=== PATIENT | female | born 1960 | race Caucasian/White ===

== ENCOUNTER 2020-03-12 15:10 | Emergency (ER) | payer BC, OTHER ==
[~2020-03-12] VITALS: Ht 167.6 cm; Wt 59.9 kg
--- NOTE | 2020-03-12 15:38 | RAD ---
EXAMINATION: XR CHEST 1V CLINICAL HISTORY: Abdominal pain EXAM DATE/TIME: 03/12/2020 3:20 PM COMPARISON: 08/07/2009 FINDINGS: Lines, Tubes, and Devices: None. Cardiomediastinal Silhouette: Normal heart size. Aortic atherosclerotic calcification. Lungs and Pleura: No evidence of focal airspace consolidation or pleural effusion. Pulmonary vasculat ure unremarkable. Bones and Soft Tissues: Degenerative changes of the thoracic spine. Cholecystectomy clips. IMPRESSION: No evidence of acute cardiopulmonary abnormality or significant interval change. Electronically signed by: Tramaine Narayanan DO (03/12/2020 3:36 PM) [id number]
--- NOTE | 2020-03-12 15:43 | PHYS DOC ---
General Adult EDM: Chief Complaint: ABDOMINAL PAIN HPI: HPI: Patient is a 60-year-old female who presents with epigastric and right upper quadrant abdominal pain. Patient states that she has a history of cirrhosis and hep C. Patient was diagnosed 4 years ago and treated for hep C. Patient sees Dr. Daley at for cirrhosis. Patient reports that pain started after Sathish, and has been off and on since. Patient does report some nausea and vomiting but denies today. States "I havent been able to eat much because of the discomfort". Describes pain as stabbing, burning pain. Patient has been taking tramadol at home, which has been helping with the pain. Patient has an appointment tomorrow with her primary care physician but wasnt able to wait due to being too uncomfortable. Denies fever. Patient has history of COPD, arthritis, depression. Patient denies history of alcohol or drug use. Patient states "I have not drank or smoked in 4 years". Review of Systems: Review of Systems: Constitutional: Denies fever or chills Eyes: Denies change in visual acuity HENT: Denies nasal congestion or sore throat Respiratory: Denies cough or shortness of breath Cardiovascular: Denies chest pain or edema GI: Reports epigastric abdominal pain, denies nausea, vomiting, bloody stools or diarrhea : Denies dysuria Musculoskeletal: Denies back pain or joint pain Integument: Denies rash Neurologic: Denies headache, focal weakness or sensory changes Endocrine: Denies polyuria or polydipsia Lymphatic: Denies swollen glands Psychiatric: Denies depression or anxiety Allergies: Allergies: Allergies Coded Allergies Type Severity Reaction Last Updated Verified No Known Drug Allergies 03/12/20 No Physical Exam: PE: Constitutional: Well developed, well nourished, no acute distress, non-toxic appearance. [] HENT: Normocephalic, atraumatic, bilateral external ears normal, oropharynx moist, no oral exudates, nose normal. [] Eyes: PERRLA, EOMI, conjunctiva normal, no discharge. [] Neck: Normal range of motion, no tenderness, supple, no stridor. [] Cardiovascular:Heart rate regular rhythm, no murmur [] Lungs & Thorax: Bilateral breath sounds clear to auscultation [] Abdomen: Bowel sounds normal, soft, epigastric tenderness, no masses, no pulsatile masses. [] Skin: Warm, dry, no erythema, no rash. [] Back: No tenderness, no CVA tenderness. [] Extremities: No tenderness, no cyanosis, no clubbing, ROM intact, no edema. [] Neurologic: Alert and oriented X 3, normal motor function, normal sensory function, no focal deficits noted. [] Psychologic: Affect normal, judgement normal, mood normal. [] EKG: EKG: Sinus Rhythm, HR 81 BPM[] Radiology/Procedures: Radiology/Procedures: []EXAMINATION: XR CHEST 1V CLINICAL HISTORY: Abdominal pain EXAM DATE/TIME: 03/12/2020 3:20 PM COMPARISON: 08/07/2009 FINDINGS: Lines, Tubes, and Devices: None. Cardiomediastinal Silhouette: Normal heart size. Aortic atherosclerotic calcification. Lungs and Pleura: No evidence of focal airspace consolidation or pleural effusio n. Pulmonary vasculature unremarkable. Bones and Soft Tissues: Degenerative changes of the thoracic spine. Cholecystectomy clips. IMPRESSION: No evidence of acute cardiopulmonary abnormality or significant interval change. Electronically signed by: Tramaine Narayanan DO (03/12/2020 3:36 PM) [id number] xam: CT of abdomen and pelvis without contrast INDICATION: Abdominal pain TECHNIQUE: Sequential axial images through the abdomen and pelvis obtained without IV contrast. Sagittal and coronal reformatted images were reconstructed from the axial data and reviewed. Comparisons: None FINDINGS: Heart size is normal. No pericardial visualized lung bases are clear. No pleural effusion. Evaluation of solid organs is limited secondary to noncontrast technique. Liver, spleen, pancreas, and adrenals are unremarkable. Gallbladder surgically absent. No perinephric inflammation or hydronephrosis. No renal or ureteral calculi are identified. Bladder is decompressed not well evaluated. Uterus is not enlarged. No abnormal adnexal mass. Large and small bowel are unremarkable. Appendix is not identified. No free intra-abdominal air or fluid. No obstruction. Abdominal aorta has a normal course and caliber. No enlarged intra-abdominal lymph nodes are identified. No suspicious osseous lesions or acute fractures. IMPRESSION: No acute process identified within the abdomen or pelvis. Exposure: One or more of the following in the visualized dose reduction techniques were utilized for this examination: 1. Automated exposure control 2. Adjustment of the MA and/or KV according to patient size 3. Use of iterative of reconstructive technique Electronically signed by: Jorge Reeves MD (03/12/2020 4:04 PM) [facility] Heart Score: Risk Factors: Risk Factors: DM, Current or recent (<one month) smoker, HTN, HLP, family history of CAD, obesity. Risk Scores: Score 0 - 3: 2.5% MACE over next 6 weeks - Discharge Home Score 4 - 6: 20.3% MACE over next 6 weeks - Admit for Clinical Observation Score 7 - 10: 72.7% MACE over next 6 weeks - Early Invasive Strategies Course & Med Decision Making: Course & Med Decision Making Pertinent Labs and Imaging studies reviewed. (See chart for details) [] Patient is a 60-year-old female who presents with epigastric and right upper quadrant abdominal pain. Patient states that she has a history of cirrhosis and hep C. Patient was diagnosed 4 years ago and treated for hep C. Patient sees Dr. Daley at for cirrhosis. Patient reports that pain started after Sathish, and has been off and on since. Patient does report some nausea and vomiting but denies today. Describes pain as stabbing, burning pain. Patient has been taking tramadol at home, which has been helping with the pain. Patient has an appointment tomorrow with her primary care physician but wasnt able to wait due to being too uncomfortable. Denies fever. Patient has history of COPD, arthritis, depression. Patient denies history of alcohol or drug use. Patient states "I have not drank or smoked in 4 years". Chest Xray shows No evidence of acute cardiopulmonary abnormality or significant interval change. Labs all within normal limits. UA negative for infection. Patient given Tramadol for discomfort. Patient reports some improvement with pain. Ordering GI cocktail. Patient denies relief from GI cocktail. Reporting nausea. Will prescribe Zofran for at home and patient will follow up with PCP tomorrow. Josef Disclaimer: Josef Disclaimer: This electronic medical record was generated, in whole or in part, using a voice recognition dictation system. Departure Departure: Impression: Primary Impression: Abdominal pain Qualified Codes: R10.13 - Epigastric pain Disposition: 01 DC HOME SELF CARE/HOMELESS Condition: IMPROVED Referrals: CRISPIN AMIN (PCP) Patient Instructions: Abdominal Pain (Nonspecific) Additional Instructions: He was to emergency room today for epigastric stabbing pain. Your CT was negative for any abnormalities. All of your lab work unremarkable. Further evaluation may be needed with a GI doctor or the specialist to see at . If you have worsening symptoms or concerns you may return to the emergency room otherwise follow-up with your PCP tomorrow like scheduled. EMERGENCY DEPARTMENT GENERAL DISCHARGE INSTRUCTIONS Thank you for coming to [facility] (ED) today and trusting us with you care. We trust that you had a positivie experience in our Emergency Department. If you wish to speak to the department management, you may call the director at [phone]. YOUR FOLLOW UP INSTRUCTIONS ARE FOLLOWS: 1. Do you have a private Doctor? If you do not have a private doctor, please ask for a resource list of physicians or clinics that may be able to assist you with follow up care. 2. The Emergency Physician has interpreted your x-rays. The X-Ray specialist will also review them. If there is a change in the findings, you will be notified in 48 hours when at all possible. 3. A lab test or culture has been done, your results will be reviewed and you will be notified if you need a change in treatment. ADDITIONAL INSTRUCTIONS AND INFORMATION: 1. Your care today has been supervised by a physician who is specially trained in emergency care. Many problems require more than one evaluation for a complete diagnosis and treatment. We recommend that you schedule your follow up appointment as recommended to ensure complete treatment of you illness or injury. If you are unable to obtain follow up care and continue to have a problem, or if your condition worsens, we recommend that you return to the ED. 2. We are not able to safely determine your condition over the phone nor are we able to give sound medical advice over the phone. For these safety reasons, if you call for medical advice we will ask you to come to the ED for further evaluation. 3. If you have any questions regarding these discharge instructions please call the ED at [phone]. SAFETY INFORMATION: In the interest of safety, wellness, and injury prevention; we encourage you to wear your sealbelt, if you smoke; quite smoking, and we encourage family to use a protective helmet for bicycling and other sporting events that present an increased risk for head injury. IF YOUR SYMPTOMS WORSEN OR NEW SYMPTOMS DEVELOP, OR YOU HAVE CONCERNS ABOUT YOUR CONDITION; OR IF YOUR CONDITION WORSENS WHILE YOU ARE WAITING FOR YOUR FOLLOW UP A PPOINTMENT; EITHER CONTACT YOUR PRIMARY CARE DOCTOR, THE PHYSICIAN WHOSE NAME AND NUMBER YOU WERE GIVEN, OR RETURN TO THE ED IMMEDIATELY. Scripts Ondansetron Hcl (ZOFRAN) 4 Mg Tablet 4 MG PO TID PRN PRN for NAUSEA, #9 TAB Prov: LUIS RIZVI APRN 03/12/20 LUIS RIZVI APRN Mar 12, 2020 15:43
[2020-03-12] MEDS ORDERED: traMADol 50 MG TABLET PO ONE (15:45)
--- NOTE | 2020-03-12 15:50 | EKG ---
[address] [address] Test Date: 2020-03-12 Test Time: 15:23:52 Pat Name: LELE QUIGLEY Department: Room: Gender: F Ambulance Driver Paramedic: ABENA : 1960 Requested By: LUIS RIZVI Order Number: [id number] Reading MD: Measurements Intervals [place] Rate: 81 P: 67 TN: 176 QRS: 42 QRSD: 80 T: 65 QT: 362 QTc: 421 Interpretive Statements SINUS RHYTHM ATRIAL PREMATURE COMPLEX(ES) R-S TRANSITION ZONE IN V LEADS DISPLACED TO THE RIGHT INCOMPLETE RIGHT BUNDLE BRANCH BLOCK T ABNORMALITY IN HIGH LATERAL LEADS ABNORMAL ECG RI6.02 No previous ECG available for comparison
[2020-03-12 15:58] LABS: BASO % 0 % (0-3); EOS % 0 % (0-3); HEMATOCRIT 43.5 % (36.0-47.0); HEMOGLOBIN 14.8 g/dL (12.0-15.5); LYMPH # 1.5 x10^3/uL (1.0-4.8); LYMPH % 27 % (24-48); MEAN CORPUSCULAR HEMOGLOBIN 31 pg (25-35); MEAN CORPUSCULAR HGB CONC 34 g/dL (31-37); MEAN CORPUSCULAR VOLUME 91 fL (79-100); MONO # 0.5 x10^3/uL (0.0-1.1); MONO % 10 % (0-9); NEUT # 3.5 x10^3uL (1.8-7.7); NEUT % 63 % (31-73); PLATELET COUNT 254 x10^3/uL (140-400); WHITE BLOOD COUNT 5.6 x10^3/uL (4.0-11.0)
[2020-03-12 16:07] LABS: ANION GAP 9 (6-14); BLOOD UREA NITROGEN 13 mg/dL (7-20); BUN/CREATININE RATIO 14 (6-20); CALCIUM 8.9 mg/dL (8.5-10.1); CARBON DIOXIDE 29 mmol/L (21-32); CHLORIDE 102 mmol/L (98-107); CREATININE 0.9 mg/dL (0.6-1.0); GFR 63.9; GLUCOSE 129 mg/dL (70-99); POTASSIUM 3.7 mmol/L (3.5-5.1); SODIUM 140 mmol/L (136-145)
--- NOTE | 2020-03-12 16:07 | RAD ---
Exam: CT of abdomen and pelvis without contrast INDICATION: Abdominal pain TECHNIQUE: Sequential axial images through the abdomen and pelvis obtained without IV contrast. Sagit tomeka and coronal reformatted images were reconstructed from the axial data and reviewed. Comparisons: None FINDINGS: Heart size is normal. No pericardial visualized lung bases are clear. No pleural effusion. Evaluation of solid organs is limited secondary to noncontrast technique. Liver, spleen, pancreas, and adrenals are unremarkable. Gallbladder surgically absent. No perinephric inflammation or hydronephrosis. No renal or ureteral calculi are identified. Bladder is decompressed not well evaluated. Uterus is not enlarged. No abnormal adnexal mass. Large and small bowel are unremarkable. Appendix is not identified. No free intra-abdominal air or fl uid. No obstruction. Abdominal aorta has a normal course and caliber. No enlarged intra-abdominal lymph nodes are identified. No suspicious osseous lesions or acute fractures. IMPRESSION: No acute process identified within the abdomen or pelvis. Exposure: One or more of the following in the visualized dose reduction techniques were utilized for this examination: 1. Automated exposure control 2. Adjustment of the MA and/or KV according to patient size 3. Use of iterative of reconstructive technique Electronically signed by: Jorge Reeves MD (03/12/2020 4:04 PM) [facility]
[2020-03-12 16:23] LABS: ALBUMIN 3.5 g/dL (3.4-5.0); ALBUMIN/GLOBULIN RATIO 0.9 (1.0-1.7); ALK PHOS 99 U/L (46-116); ALT (SGPT) 17 U/L (14-59); AST (SGOT) 13 U/L (15-37); LIPASE 51 U/L (73-393); TOTAL BILIRUBIN 0.4 mg/dL (0.2-1.0); TOTAL PROTEIN 7.3 g/dL (6.4-8.2)
[2020-03-12] MEDS ORDERED: LIDO:MAALOX 1:1 20 ML SINGLE DOSE. PO ONE (17:30)
[2020-03-12] MEDS ORDERED: ONDANSETRON PF 4 MG/2 ML VIAL. IVP ONE (18:45)
[2020-03-12] MEDS ORDERED: ONDA4TAB7 PO (18:45)
[2020-03-12 19:02] VITALS: BP 124/100
== END 2020-03-12 19:00 | disposition home or self-care (01) ==
LOC: ER 15:10
DX: R10.13 Epigastric pain (principal); R10.11 Right upper quadrant pain; R11.2 Nausea with vomiting, unspecified
CPT/HCPCS: 36415; 71045; 74176; 80053; 82140; 82553; 83690; 83735; 84484; 85025; 85610; 85730; 93005; 96374; 99285; G0480; J2405